=== PATIENT | male | born 1970 | race African-American/Black ===

== ENCOUNTER 2022-05-07 08:29 | Day surgery (SDC) | payer BC ==
[2022-05-07 08:51] LABS: Potassium 3.5 mmol/L (3.5-5.1)
[2022-05-07] MEDS ORDERED: Ringers Lactate 1,000 ML IV ONE (08:51)
[2022-05-07 09:22] VITALS: O2SAT 100
[2022-05-07] MEDS ORDERED: propofoL 200 MG/20 ML VIAL IV ONE (09:47)
[2022-05-07] MEDS ORDERED: LIDOCAINE 1% MPF 5 ML VIAL ONE (09:47)
--- NOTE | 2022-05-07 10:41 | ENDO RPT ---
[address], [address] COLONOSCOPY PROCEDURE REPORT EXAM DATE: 05/07/2022 PATIENT NAME: Elijah Delatorre MR #: [id number] BIRTHDATE: 1970 ATTENDING: Logan Rizzo DR STATUS: outpatient PIT INSPECTOR: Bri Mancia RN and R[facility] INDICATIONS: The patient is a 51 yr old Male here for a colonoscopy due to colon cancer screening PROCEDURE PERFORMED: Colonoscopy with biopsy - cold polypectomy MEDICATIONS: Per Anesthesia. ESTIMATED BLOOD LOSS: None CONSENT: The patient understands the risks and benefits of the procedure and understands that these risks include, but are not limited to: sedation, allergic reaction, infection, perforation and/or bleeding. Alternative means of evaluation and treatment include, among others: physical exam, x-rays, and/or surgical intervention. The patient elects to proceed with this endoscopic procedure. DESCRIPTION OF PROCEDURE: During intra-op preparation period all mechanical medical equipment was checked for proper function. Hand hygiene and appropriate measures for infection prevention was taken. Procedure, possible complications, alternatives including, but not limited to possibility of bleeding, perforation, tear, infection, sepsis, need for surgery, need for blood transfusion, were explained to the patient. After the risks, benefits and alternatives of the procedure were thoroughly explained, Informed consent was verified, confirmed and timeout was successfully executed by the treatment team. The patient was placed in the left lateral position. A digital rectal exam was performed and revealed internal hemorrhoids. After appropriate level of anesthesia, the scope was passed. The EC-[id number] ([id number]) endoscope was introduced through the anus and advanced to the cecum, which was identified by both the appendix and ileocecal valve. The quality of the prep was fair. The instrument was then slowly withdrawn as the colon was fully examined. Scope withdrawal time was 10 minutes. COLON FINDINGS: Four smooth and polypoid shaped pedunculated polyps ranging between 5-9mm in size with friable surfaces were found at the cecum, in the transverse colon, and rectum. A polypectomy was performed using snare cautery and with cold forceps. The resection was complete, the polyp tissue was completely retrieved and sent to histology. 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 A biopsy of the lesion was performed using cold forceps. Large internal hemorrhoids were found. Retroflexed views revealed no abnormalities. The scope was then completely withdrawn from the patient and the procedure terminated. ADVERSE EVENTS: There were no complications. IMPRESSIONS: 1. Four pedunculated polyps ranging between 5-9mm in size were found at the cecum, in the transverse colon, and rectum; polypectomy was performed using snare cautery and with cold forceps 2. 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 Large internal hemorrhoids RECOMMENDATIONS: 1. await biopsy results 2. avoid NSAIDS for 2 weeks 3. fiber rich diet 4. follow-up: office 2 week(s) 5. Monitor for any evidence of rectal bleeding. 6. hemorrhoidal hygiene 7. increase dietary water RECALL: for Colonoscopy, pending biopsy results. Logan Rizzo DR eSigned: Logan Rizzo DR 05/07/2022 10:40 AM cc: CPT CODES: ICD9 CODES: PATIENT NAME: Elijah Delatorre MR#: [id number]
[2022-05-07 11:38] VITALS: BP 138/72; TEMP 97.5
== END 2022-05-07 11:21 | disposition home or self-care (01) ==
LOC: OR 08:29
PROVIDERS: ATTEND Surgery
PROC: 0DBL8ZX Excision of Transverse Colon, Via Natural or Artificial Opening Endoscopic, Diagnostic (ICD-10-PCS; 2022-05-07)
PROC: 0DBP8ZX Excision of Rectum, Via Natural or Artificial Opening Endoscopic, Diagnostic (ICD-10-PCS; 2022-05-07)
PROC: 0DBH8ZX Excision of Cecum, Via Natural or Artificial Opening Endoscopic, Diagnostic (ICD-10-PCS; principal; 2022-05-07 09:00)
DX: Z12.11 Encounter for screening for malignant neoplasm of colon (principal); D12.7 Benign neoplasm of rectosigmoid junction; D12.0 Benign neoplasm of cecum; D12.3 Benign neoplasm of transverse colon; K64.8 Other hemorrhoids; K63.89 Other specified diseases of intestine
CPT/HCPCS: 45385; 45380; 93005; 80048; 36415; 82947; 88305; J2704; J2001; J7120

== ENCOUNTER 2023-06-10 06:47 | Day surgery (SDC) | payer BC ==
[2023-06-08 15:35] LABS: Absolute Basophils 0.1 K/uL (0-0.5); Absolute Lymphocytes (CBC) 3.1 K/uL (0.7-4.9); Basophils % 0.9 % (0-1.3); Hematocrit 42.8 % (39.6-49.0); MCV 86.2 fL (80-100); MPV 8.3 fL (7.6-11.3); Platelets 285 thou/uL (152-406); RBC Red Blood Cell Count 4.97 M/uL (4.33-5.43)
[2023-06-08 15:53] LABS: Anion Gap 5.4 mEq/L (5.0-15.0); Potassium 3.4 mEq/L (3.5-5.1)
--- NOTE | 2023-06-09 14:15 | EKG ---
Test Date: 2023-06-08 Test Time: 16:13:05 Stock Drier Tender: MAURO MEASUREMENT RESULTS: Intervals: Rate: 71 NV: 160 QRSD: 88 QT: 396 QTc: 430 Lindsay: P: 64 NV: 160 QRS: 17 T: 58 INTERPRETIVE STATEMENTS: Normal sinus rhythm Normal ECG Compared to ECG 05/07/2022 08:20:11 T-wave abnormality no longer present Electronically Signed On 06-09-23 14:12:54 WIND DEVELOPMENT DIRECTOR by Dev Beaulieu
[2023-06-10] MEDS ORDERED: propofoL 200 MG/20 ML VIAL IV ONE (07:18)
[2023-06-10] MEDS: Ringers Lactate 1,000 ML IV ONE (07:20)
[2023-06-10 09:07] VITALS: BP 119/75; TEMP 96.7; O2SAT 97
== END 2023-06-10 08:40 | disposition home or self-care (01) ==
LOC: OR 06:47
PROVIDERS: ATTEND Surgery
PROC: 0DBP8ZX Excision of Rectum, Via Natural or Artificial Opening Endoscopic, Diagnostic (ICD-10-PCS; principal; 2023-06-10 08:00)
DX: Z12.11 Encounter for screening for malignant neoplasm of colon (principal); Z86.010 Personal history of colon polyps; K64.8 Other hemorrhoids
CPT/HCPCS: 93005; 85025; 80048; 36415; 82947; 88304; 45380; J2704; J7120; 88305